=== PATIENT | female | born 1970 | race Caucasian/White ===

== ENCOUNTER 2018-11-03 17:23 | Inpatient (IN) | payer OTHER ==
[~2018-11-03] VITALS: Ht 149.9 cm; Wt 66.2 kg
[2018-11-03 17:35] VITALS: BP 104/69
--- NOTE | 2018-11-03 17:50 | NUR ---
PT C/O GENERAL WEAKNESS AND HEADACHE X1 WEEK, AND SHE WAS REFFERED TO THE ER BY URGENT CARE AFTER BEING SEEN AND FOUND TO HAVE HIGH FSBS. PER PT, SHE WAS DX WITH DM2 IN DEC 2017 BUT DID NOT UNDERSTAND HOW TO MANAGE IT, THEREFORE HAS NOT TAKEN ANY MEDICATIONS OR MONITORED HER BLOOD SUGAR AT ALL. FSBS AT THIS TIME 387. PT IS ALERT AND ANSWERING QUESTIONS APPROPRIATELY. REPORTS OCCASIONAL BLURRY VISION, BUT C/O OF HEADACHE. PT PLACED IN BED, WITH A GOWN AND ON CRACKING MACHINE OPERATOR AT THIS TIME. BED IN LOW POSITION, SIDE RAIL UP X1.
[2018-11-03] MEDS ORDERED: NACL 0.9% 1,000 ML IV ONE (17:51)
[2018-11-03] MEDS ORDERED: KCL 20 MEQ/WATER INJ PREMIX 100 ML IV ONE (17:55)
[2018-11-03] MEDS ORDERED: INSULIN REGULAR, HUMAN 100 UNIT in NACL 0.9% 100 ML IV ONE ×4 (17:55→18:35)
[2018-11-03 18:11] LABS: BASOPHILS % (AUTO) 0.4 % (0.0-2.0); HEMATOCRIT 35.5 % (36-48); HEMOGLOBIN 11.5 g/dL (12.0-16.0); LYMPHOCYTES # (AUTO) 0.6 K/uL (2.5-16.5); LYMPHOCYTES % (AUTO) 8.8 % (20.5-51.1); MEAN CORPUSCULAR HEMOGLOBIN 25 pg (27-31); MEAN CORPUSCULAR HGB CONC 32 g/dL (33-37); MEAN CORPUSCULAR VOLUME 76.2 fL (80-94); MONOCYTES # (AUTO) 0.4 K/uL (0.8-1.0); MONOCYTES % (AUTO) 6.8 % (1.7-9.3); NEUTROPHILS # (AUTO) 5.3 K/uL (1.8-7.7); PLATELET COUNT (AUTO) 154 K/uL (140-450); RED BLOOD CELL COUNT(AUTO) 4.66 MIL/uL (4.20-5.40); RED CELL DISTRIBUTION WIDTH 15.6 % (11.6-13.7); WHITE BLOOD COUNT (AUTO) 6.3 K/uL (4.8-10.8)
--- NOTE | 2018-11-03 18:20 | NUR ---
PT C/O POTASSIUM BURNING HER ARM, PER DR. CM IT IS OKAY TO LOWER THE RATE TO 25ML P HR
--- NOTE | 2018-11-03 18:22 | NUR ---
RESPIRATORY THERAPIST AT BEDSIDE FOR ABG BLOOD DRAW ORDERED
[2018-11-03 18:36] LABS: ANION GAP 10.7 (8-16); CARBON DIOXIDE 27.6 mmol/L (21-32); CHLORIDE 92 mmol/L (98-107); CREATININE 0.8 mg/dL (0.6-1.3); GFR ARICAN-AMERICAN 98 mL/min (>90); GLUCOSE 358 mg/dL (74-106); POTASSIUM 4.3 mmol/L (3.5-5.1); SODIUM SERUM 126 mmol/L (136-145); UREA NITROGEN, BLOOD 12 mg/dL (7-18)
[2018-11-03 18:39] LABS: ACETONE, SERUM NEGATIVE (NEGATIVE)
[2018-11-03] MEDS ORDERED: INSULIN REGULAR, HUMAN 100 UNIT/ML VIAL IVP ONE (18:40)
[2018-11-03 18:42] LABS: ALBUMIN 3.2 g/dL (3.4-5.0); ASPARTATE AMINOTRANSFERASE 94 U/L (15-37); TOTAL BILIRUBIN 0.9 mg/dL (0.0-1.0)
--- NOTE | 2018-11-03 19:10 | NUR ---
RECEIVED REPORT FROM LARA KRUEGER
[2018-11-03] MEDS ORDERED: DEXTROSE 50% 50 ML SYR IVP PRN (19:30)
[2018-11-03] MEDS ORDERED: DOCUSATE SODIUM 100 MG GELCAP PO PRN (19:30)
[2018-11-03] MEDS ORDERED: MORPHINE SULFATE 2 MG/ML SYR IVP PRN (19:30)
[2018-11-03] MEDS ORDERED: ONDANSETRON 4 MG/2 ML VIAL IM/IVP PRN (19:30)
[2018-11-03] MEDS ORDERED: HYDROcodone/APAP 5/325 MG 1 TAB TAB PO PRN (19:30)
[2018-11-03] MEDS ORDERED: LORazepam 2 MG/ML VIAL IM/IVP PRN (19:30)
[2018-11-03 19:42] LABS: APPEARANCE,URINE CLEAR (CLEAR); BILIRUBIN,URINE NEGATIVE (NEGATIVE); BLOOD, URINE 1+ (NEGATIVE); COLOR,URINE YELLOW (YELLOW); LEUKOCYTE ESTERASE ,URINE NEGATIVE (NEGATIVE); NITRITE, URINE NEGATIVE (NEGATIVE); PH,URINE 5.5 (5.0-9.0); UGLUCOSE 3+ (NEGATIVE)
--- NOTE | 2018-11-03 19:50 | NUR ---
RECEIVED REPORT FROM EXPLOSIVE ORDNANCE DISPOSAL TECHNICIAN. PT IS [place] SPEAKING ONLY COMING WITH DAUGHTER. PT ON ROOM AIR RESPIRATIONS ARE EQUAL AND UNLABORED. PT AMBULATED FROM GURNEY TO BED WITH STEADY GAIT. C/C HIGH BG. PT WITH 2 IV ON LAC 18G INFUSING K RIDER PER ORDERS. AND RAC 20G SL. SKIN IS INTACT. PT WAS DIAGNOSED WITH DM IN BUT NO F/U. MRSA SWAB OBTAINED. VS: 112/71 HR 103, 94% RA, 17 DENIES PAIN TEMP 100.2. DENIES ANY OTHER PMH. PLAN OF CARE DISCUSSED WITH PT AND DAUGHTER. CALL LIGHT IS WITHIN REACH. WILL ROUND FREQUENTLY.
[2018-11-03 19:53] LABS: RBC,URINE 0-5 /HPF (0-5); YEAST,URINE Few /HPF (None Seen)
[2018-11-03 19:56] LABS: BARBITURATE, URINE NEG. ng/ml (NEG <=200); BENZODIAZEPINE, URINE NEG. ng/mL (NEG <=200); CANNABINOID, URINE NEG. ng/mL (NEG <=50); COCAINE, URINE NEG. ng/mL (NEG <=300); OPIATE, URINE NEG. ng/mL (NEG <=2000); PHENCYCLIDINE SCREEN,URINE NEG. ng/mL (NEG <=25)
[2018-11-03 20:00] VITALS: BP 112/71
[2018-11-03 20:15] LABS: MAGNESIUM 2.1 mg/dL (1.8-2.4); PHOSPHORUS 2.2 mg/dL (2.5-4.9); THYROID STIMULATING HORMONE 5.02 uIU/mL (0.34-3.74)
[2018-11-03 20:19] LABS: PROTHROMBIN TIME 10.4 secs (10.8-13.4)
--- NOTE | 2018-11-03 20:39 | NUR ---
Transfer of care AND report given to LARA Sesay.
--- NOTE | 2018-11-03 20:39 | NUR ---
Patient will be admitted to care of . Admited to TELE. Will go to room 120A. Belongings list completed. Report to LARA MAHAN.
[2018-11-03] MEDS: ACETAMINOPHEN 325 MG TAB PO PRN (20:52)
--- NOTE | 2018-11-03 20:52 | NUR ---
BG 269 ADMINISTERED INSULIN PER PROTOCOL AND TYLENOL FOR C/C HEADACHE.
[2018-11-03] MEDS: NACL 0.9% 1,000 ML IV SCH (20:57)
[2018-11-03] MEDS: INSULIN LISPRO SLIDING SCALE 100 UNITS/ML VIAL SUBQ PRN (20:57)
[2018-11-03] MEDS ORDERED: BLOOD GLUCOSE MONITORING 1 DEV DEV FS SCH (21:00)
[2018-11-03] MEDS ORDERED: SODIUM PHOS / POTASSIUM PHOS 1 PKT PDR PO ONE (21:45)
--- NOTE | 2018-11-03 22:50 | NUR ---
SCHEDULED MEDICATIONS GIVEN. PATIENT TOLERATED WELL. OFFERED PATIENT A SANDWICH AND EDUCATED SHE WILL NOT HAVE BREAKFAST UNTIL AFTER LIVER US TOMORROW MORNING SIGN AT DOOR AND PATIENT VERBALIZED UNDERSTANDING. CALL LIGHT IS WITHIN REACH. WILL CONTINUE TO MONITOR.
[2018-11-03 22:52] LABS: IRON, SERUM 28 ug/dl (50-175); TOTAL IRON BINDING CAPACITY 324 ug/dl (250-450)
[2018-11-04] VITALS: BP 94/52
[2018-11-04] MEDS ORDERED: FLUCONAZOLE 100 MG TAB PO SCH
[2018-11-04] MEDS: BLOOD GLUCOSE MONITORING 1 DEV DEV FS SCH ×5 (00:19→20:19)
--- NOTE | 2018-11-04 00:20 | NUR ---
VITAL SIGNS ARE WITHIN NORMAL LIMITS. BG 280 ADMINISTER INSULIN PER PROTOCOL. RAD AT BEDSIDE DOING CXR. CALL LIGHT IS WITHIN REACH. WILL CONTINUE TO MONITOR.
[2018-11-04] MEDS: INSULIN LISPRO SLIDING SCALE 100 UNITS/ML VIAL SUBQ PRN ×5 (00:24→20:19)
--- NOTE | 2018-11-04 02:12 | NUR ---
PATIENT IS SLEEPING COMFORTABLY IN BED. RESPIRATIONS ARE EQUAL AND UNLABORED. CALL LIGHT IS WITHIN REACH. WILL CONTINUE TO ROUND.
[2018-11-04 04:00] VITALS: BP 120/77
--- NOTE | 2018-11-04 04:04 | NUR ---
PATIENT IS SLEEPING COMFORTABLY IN BED. RESPIRATIONS ARE EQUAL AND UNLABORED. CALL LIGHT IS WITHIN REACH. WILL CONTINUE TO MONITOR.
--- NOTE | 2018-11-04 06:30 | NUR ---
SCHEDULED MEDICATION GIVEN. NO S/S OF DISTRESS. ALL NEEDS MET AT THIS TIME.
[2018-11-04] MEDS: METOCLOPRAMIDE 10 MG TAB PO SCH ×3 (06:31→15:58)
[2018-11-04] MEDS: NACL 0.9% 1,000 ML IV SCH ×2 (06:31→20:19)
--- NOTE | 2018-11-04 07:22 | NUR ---
RECEIVED BED SIDE REPORT FROM CASH MANAGEMENT ASSOCIATE RN QUETA. PT A/O X4, ON RA IN NO RESP DISTRESS, APPEARS IN NO PAIN, CAME TO SPEAK WITH PT. PLAN IS FOR TO COME AND EVALUATE PT. IV L AC 20G SL, R AC 22G SL. US ARTERIAL/VENOUS BLE TO BE DONE. RIGHT ELBOW SUPERFICIAL INTACT WOUND. WILL CONTINUE TO MONITOR
--- NOTE | 2018-11-04 07:22 | NUR ---
GAVE BEDSIDE REPORT TO DAY RN. PT ENDORSED IN STABLE CONDITION.
[2018-11-04 07:44] LABS: BASOPHILS % (AUTO) 0.8 % (0.0-2.0); HEMOGLOBIN 10.6 g/dL (12.0-16.0); LYMPHOCYTES # (AUTO) 0.9 K/uL (2.5-16.5); LYMPHOCYTES % (AUTO) 16.9 % (20.5-51.1); MEAN CORPUSCULAR HEMOGLOBIN 25 pg (27-31); MEAN CORPUSCULAR HGB CONC 32 g/dL (33-37); MEAN CORPUSCULAR VOLUME 76.9 fL (80-94); MONOCYTES # (AUTO) 0.7 K/uL (0.8-1.0); MONOCYTES % (AUTO) 13.7 % (1.7-9.3); NEUTROPHILS # (AUTO) 3.6 K/uL (1.8-7.7); NEUTROPHILS % (AUTO) 68.6 % (42.2-75.2); PLATELET COUNT (AUTO) 146 K/uL (140-450); RED BLOOD CELL COUNT(AUTO) 4.29 MIL/uL (4.20-5.40); RED CELL DISTRIBUTION WIDTH 15.7 % (11.6-13.7); WHITE BLOOD COUNT (AUTO) 5.2 K/uL (4.8-10.8)
--- NOTE | 2018-11-04 07:54 | NUR ---
CHECKED PT'S BLOOD SUGAR. WAS 191. LANTUS 10 UNITS SCHEDULED. NOTIFIED IF HE WANTED ME TO GIVE HUMALOG WELL LANTUS AND THE METFORMIN. SAID TO DC ACCUCHECKS Q4H AND TO GIVE LANTUS 10 UNITS WITH METFORMIN. WILL CONTINUE TO MONITOR
[2018-11-04] MEDS ORDERED: metFORMIN 850 MG TAB PO SCH (08:04)
[2018-11-04 08:06] LABS: ANION GAP 9.6 (8-16); CARBON DIOXIDE 28.9 mmol/L (21-32); CREATININE 0.6 mg/dL (0.6-1.3); POTASSIUM 3.5 mmol/L (3.5-5.1)
[2018-11-04 08:16] LABS: ALBUMIN 2.6 g/dL (3.4-5.0); BILIRUBIN,DIRECT 0.1 mg/dL (0.0-0.3); PHOSPHORUS 1.8 mg/dL (2.5-4.9); TOTAL BILIRUBIN 0.4 mg/dL (0.0-1.0)
[2018-11-04] MEDS: FERROUS SULFATE 325 MG TABEC PO SCH ×2 (08:42→15:58)
[2018-11-04] MEDS: FLUCONAZOLE 100 MG TAB PO SCH (08:44)
[2018-11-04] MEDS ORDERED: metFORMIN 500 MG TAB PO SCH (08:45)
[2018-11-04] MEDS: INSULIN LANTUS 100 UNITS/ML 10 ML VIAL SUBQ SCH (08:48)
[2018-11-04] MEDS ORDERED: SODIUM FERRIC GLUCONATE 125 MG in NACL 0.9% 100 ML IV ONE (09:00)
[2018-11-04] MEDS: ACETAMINOPHEN 325 MG TAB PO PRN (10:21)
--- NOTE | 2018-11-04 10:25 | NUR ---
GAVE TYLENOL PRN D/T TEMP 101.2. WILL CONTINUE TO MONITOR
--- NOTE | 2018-11-04 11:02 | NUR ---
PT'S TEMP 99.4 WILL CONTINUE TO MONITOR
[2018-11-04 11:14] VITALS: BP 111/70
[2018-11-04 13:06] LABS: CHOL/HDL RATIO 5.9 (1-4.5)
--- NOTE | 2018-11-04 14:55 | NUR ---
PT STABLE. FAMILY AT BEDSIDE, ON RA IN NO RESP DISTRESS AND IN NO PAIN. WILL CHECK BLOOD SUGAR SOON.
[2018-11-04] MEDS: metFORMIN 500 MG TAB PO SCH (15:59)
[2018-11-04 16:33] VITALS: BP 100/63
--- NOTE | 2018-11-04 17:40 | NUR ---
PATIENT'S BLOOD GLUCOSE 281. ADMINISTERED 6 UNITS OF HUMALOG BASED ON SLIDING SCALE, PATIENT TOLERATED WELL. PATIENT IS SITTING UP ON BED AND TALKING TO VISITORS AT BEDSIDE. NO SIGNS OF DISTRESS NOTED. SAFETY MEASURES IN PLACE. BED IN LOW POSITION AND CALL LIGHT WITHIN REACH. INSTRUCTED PATIENT TO USE THE CALL LIGHT FOR ANY ASSISTANCE AND PATIENT WAS AWARE.
--- NOTE | 2018-11-04 19:14 | NUR ---
RECEIVED REPORT FROM DAY RN. PT IS [place] SPEAKING ONLY. PT ON ROOM AIR RESPIRATIONS ARE EQUAL AND UNLABORED. PT C/C HIGH BG. PT WITH 2 IV ON LAC 18G INFUSING IVF PER ORDERS AND RAC 20G SL. SKIN IS INTACT. PT WAS DIAGNOSED WITH DM IN BUT NO F/U.DENIES PAIN. PLAN OF CARE DISCUSSED WITH PT. CALL LIGHT IS WITHIN REACH. WILL ROUND FREQUENTLY.
--- NOTE | 2018-11-04 19:18 | NUR ---
ENDORSED PT TO BOARD CERTIFIED BEHAVIORAL ANALYST RN. PT STABLE
[2018-11-04 20:00] VITALS: BP 103/63
--- NOTE | 2018-11-04 20:19 | NUR ---
VITAL SIGNS ARE WITHIN NORMAL LIMITS. SCHEDULED MEDICATIONS ADMINISTERED. BG 214 COVERAGE PER PROTOCOL. REMOVED IV ON RAC. IV CATH IS INTACT. LAC 18 IVF INFUSING PER ORDERS. SAFETY MEASURES ARE IN PLACE. WILL ROUND FREQUENTLY.
--- NOTE | 2018-11-04 22:15 | NUR ---
PATIENT IS SLEEPING COMFORTABLY IN BED. SAFETY MEASURES ARE IN PLACE. CALL LIGHT IS WITHIN REACH. WILL CONTINUE TO MONITOR.
[2018-11-05] VITALS: BP 97/65
--- NOTE | 2018-11-05 | NUR ---
VITAL SIGNS ARE WITHIN NORMAL LIMITS. DENIES PAIN. CALL LIGHT IS WITHIN REACH. WILL CONTINUE TO MONITOR.
--- NOTE | 2018-11-05 02:04 | NUR ---
PATIENT IS SLEEPING COMFORTABLY IN BED. RESPIRATIONS ARE EQUAL AND UNLABORED. NO S/S OF DISTRESS. WILL CONTINUE TO MONITOR.
[2018-11-05 04:00] VITALS: BP 97/64
--- NOTE | 2018-11-05 04:30 | NUR ---
VITAL SIGNS ARE WITHIN NORMAL LIMITS. ALL NEEDS MET AT THIS TIME CALL LIGHT IS WITHIN REACH.
[2018-11-05] MEDS: METOCLOPRAMIDE 10 MG TAB PO SCH (06:39)
[2018-11-05] MEDS: INSULIN LISPRO SLIDING SCALE 100 UNITS/ML VIAL SUBQ PRN ×2 (06:41→11:44)
[2018-11-05] MEDS: BLOOD GLUCOSE MONITORING 1 DEV DEV FS SCH ×2 (06:42→11:41)
--- NOTE | 2018-11-05 07:12 | NUR ---
RECEIVED REPORT FROM RN EXAMINER NURSE. PT IN STABLE CONDITION
--- NOTE | 2018-11-05 07:12 | NUR ---
GAVE BEDSIDE REPORT TO DAY SHIFT RN. PT IN STABLE CONDITION.
[2018-11-05 07:35] VITALS: BP 106/71
[2018-11-05] MEDS: FERROUS SULFATE 325 MG TABEC PO SCH (08:02)
[2018-11-05] MEDS: metFORMIN 500 MG TAB PO SCH (08:02)
[2018-11-05] MEDS: FLUCONAZOLE 100 MG TAB PO SCH (08:02)
[2018-11-05] MEDS: INSULIN LANTUS 100 UNITS/ML 10 ML VIAL SUBQ SCH (08:06)
[2018-11-05] MEDS ORDERED: METF1000 PO (08:14)
--- NOTE | 2018-11-05 08:39 | NUR ---
PATIENT HAS BEEN SCREENED AND CATEGORIZED HIGH NUTRITION RISK. PATIENT WILL BE SEEN WITHIN 1-2 DAYS OF ADMISSION. 11/05/[address]
[2018-11-05] MEDS ORDERED: ASPI-1718 PO (08:52)
[2018-11-05] MEDS ORDERED: ATOR10TA PO (08:52)
[2018-11-05] MEDS ORDERED: PNEUMOCOCCAL VACCINE 23 MCG/0.5 ML VIAL IMVAC PRN (09:00)
[2018-11-05 09:06] LABS: TRANSFERRIN 289 mg/dL (200-370)
--- NOTE | 2018-11-05 11:27 | NUR ---
GAVE DISCHARGE PAPERWORK AND INSTRUCTIONS TO PATIENT. SON AT BEDSIDE. CALLED DIETARY CONSULT TO SPEAK TO PATIENT REGARDING DIET.
--- NOTE | 2018-11-05 11:30 | NUR ---
Requested FNS Tessie to speak with pt re: dietary education. Per Tessie, she will see pt in room in a few minutes. Pt notified.
--- NOTE | 2018-11-05 11:35 | NUR ---
YAMILEX Kurtz at bedside for dietary education with pt & son.
--- NOTE | 2018-11-05 11:50 | NUR ---
PATIENT IS OFF THE UNIT. PERIPHERAL IV HAS BEEN REMOVED. ARMBAND HAS BEEN TAKEN OFF PATIENT. PT LEFT IN STABLE CONDITION.
[2018-11-06 09:10] LABS: FERRITIN 129 ng/mL (15-150)
[2018-11-06 15:15] LABS: HEPATITIS A ANTIBODY IGM Negative (Negative); HEPATITIS B CORE AB TOTAL Negative (Negative); HEPATITIS B SURFACE ANTIBODY Non Reactive (.); HEPATITIS B SURFACE ANTIGEN Negative (Negative)
== END 2018-11-05 11:50 | disposition home or self-care (01) | DRG 74 ==
LOC: MED 17:23 → MTU 19:28
PROVIDERS: ADMIT General Practice; ATTEND General Practice
DX: E11.43 Type 2 diabetes mellitus with diabetic autonomic (poly)neuropathy (principal); E87.1 Hypo-osmolality and hyponatremia; K31.84 Gastroparesis; R74.0 Nonspecific elevation of levels of transaminase and lactic acid dehydrogenase [LDH]; E83.39 Other disorders of phosphorus metabolism; Z66 Do not resuscitate; E03.9 Hypothyroidism, unspecified; D50.9 Iron deficiency anemia, unspecified; E66.3 Overweight; Z68.28 Body mass index [BMI] 28.0-28.9, adult; Z91.19 Patient's noncompliance with other medical treatment and regimen
CPT/HCPCS: 36415; 36600; 71045; 76705; 80048; 80053; 80076; 80305; 81001; 82009; 82272; 82607; 82728; 82746; 82803; 82948; 83036; 83540; 83690; 83735; 83880; 84100; 84436; 84443; 85025; 85045; 85610; 85730; 86704; 86706; 86708; 86709; 86803; 87081; 87086; 87340; 90732; 93005; 93925; 93970; 96361; 96374; 99285; G0482; J1644; J1815; J2916; J3480; J7030; J8597; Q0092